=== PATIENT | female | born 2000 | race Hispanic/Latino ===

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

== ENCOUNTER → 2024-12-28 | Outpatient (CLI) | payer OTHER ==
--- NOTE | 2024-12-28 18:34 | HMCIMG ---
Exam: Small part ultrasound right flank Reason: Localized swelling, mass. FINDINGS: Ultrasound was performed of the soft tissues of the right flank in the area of interest. There are normal-appearing subcutaneous soft tissues. Underlying muscles appear unremarkable as well. There is no evidence of a hernia. There is no evidence of focal mass or focal fluid collection. IMPRESSION: 1. Negative ultrasound of the area of interest in the right flank.
== END | disposition home or self-care (01) ==
LOC: RAH 15:41
PROVIDERS: ATTEND Student in an Organized Health Care Education/Training Program
DX: R22.2 Localized swelling, mass and lump, trunk (principal)
CPT/HCPCS: 76705

== ENCOUNTER 2025-01-14 11:42 | Day surgery (SDC) | payer OTHER ==
[2025-01-10 08:44] VITALS: BP 115/74; PULSE 90; RESP 16; TEMP 97.9
[2025-01-10 08:49] LABS: BASOPHILS # (AUTO) 0.03 K/uL (0.00-0.20); BASOPHILS % (AUTO) 0.4 % (0.0-5.0); EOSINOPHILS # (AUTO) 0.14 K/uL (0.00-0.70); EOSINOPHILS % (AUTO) 1.8 % (0.0-8.0); HEMATOCRIT 37.9 % (36-48); IMMATURE GRANULOCYTE ABSOLUTE 0.02 K/uL (0-1); LYMPHOCYTES # (AUTO) 3.1 K/uL (1.0-4.8); LYMPHOCYTES % (AUTO) 39.7 % (21.0-51.0); MEAN CORPUSCULAR HEMOGLOBIN 27.4 pg (27.0-33.0); MEAN CORPUSCULAR VOLUME 83.1 fL (79-99); MONOCYTES # (AUTO) 0.5 K/uL (0.1-1.0); MONOCYTES % (AUTO) 6.1 % (3.0-13.0); NEUTROPHILS # (AUTO) 4.1 K/uL (1.8-7.7); NEUTROPHILS % (AUTO) 51.7 % (40.0-77.0); PLATELET COUNT (AUTO) 385 K/uL (130-400); RED BLOOD CELL COUNT(AUTO) 4.56 MIL/uL (4.00-5.50); RED CELL DISTRIBUTION WIDTH 13.6 % (11.0-15.5); WHITE BLOOD COUNT (AUTO) 7.9 K/uL (4.8-10.8)
[2025-01-10 08:52] LABS: CREATININE 0.7 mg/dL (0.5-1.0); POTASSIUM 3.9 mmol/L (3.5-5.1)
[2025-01-14] VITALS (14 sets, daily range): BP systolic 122–143; BP diastolic 70–85; PULSE 75–91; RESP 15–17; TEMP 97.4–97.9
[~2025-01-14] VITALS: Ht 167.6 cm; Wt 109.7 kg
[2025-01-14] MEDS: ceFAZolin SODIUM 2 GM VIAL ONE
[~2025-01-14 11:42] MED LIST: BUPR100T13 PO; LAMO25TB3 PO; PANT40TA54 PO; QUET400T13 PO
[2025-01-14] MEDS ORDERED: LACTATED RINGERS 1000ML 1,000 ML IV ONE (11:51)
[2025-01-14] MEDS ORDERED: dexaMETHasone SOD PHOSPHATE 10MG/ML 1ML VIAL ONE (12:50)
[2025-01-14] MEDS ORDERED: LIDOCAINE PF 100MG/5ML (2%) SYRINGE 5ML ONE (12:50)
[2025-01-14] MEDS ORDERED: proPOFol 10 MG/ML 20ML VIAL IV ONE (12:51)
[2025-01-14] MEDS ORDERED: GLYCOPYRROLATE 0.2 MG/ML 5 ML VIAL ONE (12:51)
[2025-01-14] MEDS ORDERED: NEOSTIGMINE METHYLSULFATE 1MG/ML IV ONE (12:51)
[2025-01-14] MEDS ORDERED: SUCCINYLCHOLINE CHLORIDE 20 MG/ML 10 ML VIAL ONE (12:51)
[2025-01-14] MEDS ORDERED: ondanSETRON 4MG INJ ONE (12:51)
[2025-01-14] MEDS ORDERED: rocuRONium bROMide 10MG/1ML 5ML VL ONE (12:52)
[2025-01-14] MEDS ORDERED: FENTanyl CITRate PF 50 MCG/1 ML 2ML VIAL ONE ×3 (12:52→17:07)
[2025-01-14] MEDS ORDERED: MIDAZOLAM HCL 1 MG/ML 2ML VIAL ONE (12:54)
[2025-01-14] MEDS: ceFAZolin SODIUM 1 GM VIAL ONE (15:46)
[2025-01-14] MEDS: INDOCYANINE GREEN 25 MG VIAL IJ ONE (15:51)
[2025-01-14] MEDS: BUPIvacaine/PF 0.25% 30ML VIAL IJ ONE (16:03)
--- NOTE | 2025-01-14 17:30 | OP ---
Operative Note: DATE OF PROCEDURE: 01/14/25 SURGEON: TEO HAGEN DO COMMERCIAL LOAN MANAGER: None ANESTHESIA: General ANESTHESIOLOGIST/BALE OPENER: Fab Okeefe CRNA PREOPERATIVE DIAGNOSIS: Symptomatic cholelithiasis POSTOPERATIVE DIAGNOSIS: Symptomatic cholelithiasis SYNOPSIS: None PROCEDURE: Robotic cholecystectomy ESTIMATED BLOOD LOSS: 5 cc INDICATIONS: This is a 24-year-old female with episodes of right upper quadrant abdominal pain. Abdominal ultrasound showed cholelithiasis. I recommended cholecystectomy for symptomatic cholelithiasis. I discussed the procedure in detail with the patient and her family. All questions were answered. The patient expressed understanding and agreement with plan. DESCRIPTION OF PROCEDURE: Patient was placed on the operating table in the supine position with arms tucked. After adequate sedation the patient was intubated by anesthesia. Perioperative antibiotics were given. The patient's abdomen was prepped and draped in the usual sterile fashion. Local anesthetic was infiltrated into the skin and soft tissue of the proposed supraumbilical skin incision. A transverse supraumbilical skin incision was made and dissection was carried down to the level of the fascia. The fascia was elevated with Seymour clamps and incised. The peritoneum was entered bluntly and a 12 mm balloon Carlson port was placed. The abdomen was insufflated and the patient tolerated insufflation well. A camera was inserted and all 4 quadrants of the abdomen were inspected. No apparent gross abnormality was seen as well as no evidence of inadvertent injury on entry. Three robotic ports were placed in the left and right upper quadrant under direct visualization. The patient was placed in head up and right side up position. The robot was docked. The gallbladder was grasped at its fundus and retracted cephalad. Thin adhesions to the duodenum were taken down bluntly. Once the Craig's pouch was visualized dissection was carried out around the hepatocystic triangle until a single ductal structure was seen exiting the tapering Cragi's pouch. After critical view was achieved the cystic artery was serially clipped and ligated and the cystic duct was serially clipped and ligated. The gallbladder was removed from the fossa using electrocautery and placed in an Endo Catch bag for later retrieval. The liver was inspected for hemostasis. Small bleeding edges of the liver were cauterized. The area was again checked and found to be hemostatic. The robot was undocked. The robotic ports were removed under direct visualization and found to be hemostatic. The gallbladder was removed and handed off for routine pathology. The fascia of the 12 mm port site was approximated using a single [id number] suture of 0 Vicryl. The port sites were irrigated with saline. The skin was approximated with 4-0 Monocryl in a subcuticular fashion. The wounds were dressed with Dermabond. All instrument, needle, and sponge counts were correct at the end of the procedure. The patient tolerated the procedure well. The patient was aroused from sedation, extubated, and transferred to the postanesthesia care unit in good condition. TEO HAGEN DO Jan 14, 2025 17:30
[2025-01-14] MEDS: ketOROlac 30MG VIAL (30MG/ML) ONE (17:31)
[2025-01-14] MEDS: ondanSETRON 4MG INJ ONE (17:44)
[2025-01-14] MEDS: acetaMINOPHEN 100 ML ONE (17:54)
--- NOTE | 2025-01-14 18:30 | NUR ---
BOTH PT AND BOYFRIEND GIVEN VERBAL AND WRITTEN DISCHARGE INSTRUCTIONS. IV REMOVED SITE ASYMPTOMATIC. WHEN ASKED IF NEEDED HELP CHANGING PT STATED HER BOYFRIEND WILL ASSIST. PT WILL BE SENT OUT VIA WHEELCHAIR BOYFRIEND DRIVING
== END 2025-01-14 18:44 | disposition home or self-care (01) ==
LOC: DAH 11:42
PROVIDERS: ATTEND Student in an Organized Health Care Education/Training Program
DX: K81.1 Chronic cholecystitis (principal); K83.8 Other specified diseases of biliary tract; F41.9 Anxiety disorder, unspecified; F31.9 Bipolar disorder, unspecified; G43.909 Migraine, unspecified, not intractable, without status migrainosus; E66.9 Obesity, unspecified; Z68.38 Body mass index [BMI] 38.0-38.9, adult; Z79.899 Other long term (current) drug therapy
CPT/HCPCS: 80048; 84703; 85025; 86850 ×2; 86900 ×2; 86901 ×2; 36415 ×2; 47562; 81025; 88304; A6260; J1885; A4663; J7030; J7120 ×2; J3010 ×3; J0690 ×2; J1100; J0330; J0665; J3490 ×2; J2003; J2250; J2704; J2405 ×2; J2710; C1769; A4930; A4215; A4213; A4222; A4221; A4216; A4223 ×2; S2900